=== PATIENT | female | born 1935 | race Caucasian/White ===

== ENCOUNTER 2023-10-02 15:14 | Emergency (ER) | payer OTHER ==
[~2023-10-02] VITALS: Ht 157.5 cm; Wt 68.0 kg
[2023-10-02 15:23] VITALS: BP_SYST 113; PULSE 74; RESP 15; TEMP 98.2; O2SAT 96
[2023-10-02] MEDS ORDERED: KETOROLAC TROMETHAMINE 30 MG VIAL ONE (17:10)
[2023-10-02] MEDS: KETOROLAC TROMETHAMINE 30 MG VIAL IM ONE (17:10)
[2023-10-02] MEDS ORDERED: DICL20GE TP (17:14)
[2023-10-02] MEDS ORDERED: LIDO1ADH22 TP (17:14)
[2023-10-02 17:30] VITALS: BP_SYST 113; PULSE 74; RESP 15; TEMP 98.2; O2SAT 96
== END 2023-10-02 17:27 | disposition home or self-care (01) ==
LOC: SED 15:14
DX: M54.41 Lumbago with sciatica, right side (principal); M79.604 Pain in right leg; I10 Essential (primary) hypertension
CPT/HCPCS: 99285; 93971; 96372; J1885

== ENCOUNTER 2023-11-08 15:04 | Emergency (ER) | payer OTHER ==
[~2023-11-08] VITALS: Ht 157.5 cm; Wt 72.6 kg
[~2023-11-08 15:04] MED LIST: DICL20GE TP; LIDO1ADH22 TP
[2023-11-08 15:17] VITALS: BP_SYST 110; PULSE 74; RESP 18; TEMP 98.3; O2SAT 98
[2023-11-08 16:41] LABS: ALANINE AMINOTRANSFERASE 25 U/L (12-78); ANION GAP 5 (5-15); ASPARTATE AMINOTRANSFERASE 19 U/L (10-37); CALCIUM 9.5 mg/dL (8.4-11.0); CARBON DIOXIDE 31 mmol/L (23-29); CHLORIDE 98 mmol/L (98-107); CREATININE 0.89 mg/dL (0.55-1.30); GLUCOSE 92 mg/dL (74-106); POTASSIUM 5.1 mmol/L (3.5-5.1); SODIUM SERUM 134 mmol/L (136-145); TOTAL BILIRUBIN 0.5 mg/dL (0.0-1.0); TOTAL PROTEIN, SERUM 7.1 g/dL (6.4-8.3); UREA NITROGEN, BLOOD 29 mg/dL (8-21)
[2023-11-08 16:52] LABS: BILIRUBIN,DIRECT 0.1 mg/dL (0.0-0.3); CREATINE KINASE, TOTAL 112 U/L (26-192)
[2023-11-08 16:55] LABS: BASOPHILS % (AUTO) 0.6 % (0.0-2.0); EOSINOPHILS # (AUTO) 0.2 K/uL (0.0-0.4); EOSINOPHILS % (AUTO) 3.3 % (0.0-4.0); HEMATOCRIT 36.9 % (36-48); HEMOGLOBIN 12.7 g/dL (12.0-16.0); LYMPHOCYTES # (AUTO) 2.3 K/uL (1.0-5.5); LYMPHOCYTES % (AUTO) 39.3 % (20.5-51.5); MEAN CORPUSCULAR HEMOGLOBIN 32 pg (27-31); MEAN CORPUSCULAR HGB CONC 34 % (32-36); MEAN CORPUSCULAR VOLUME 93 fL (79.0-98.0); MONOCYTES # (AUTO) 0.5 K/uL (0.0-1.0); MONOCYTES % (AUTO) 8.2 % (1.7-9.3); NEUTROPHILS # (AUTO) 2.9 K/uL (1.8-7.7); NEUTROPHILS % (AUTO) 48.6 % (40.0-70.0); PLATELET COUNT (AUTO) 168 K/uL (130-430); RED BLOOD CELL COUNT(AUTO) 3.97 MIL/uL (4.2-6.2); RED CELL DISTRIBUTION WIDTH 14.2 % (9.0-15.0); WHITE BLOOD COUNT (AUTO) 5.9 K/uL (4.8-10.8)
[2023-11-08 17:20] VITALS: BP_SYST 110; PULSE 74; RESP 18; TEMP 98.3; O2SAT 98
[2023-11-08 17:57] LABS: PROTHROMBIN TIME 10.5 SECS (9.5-12.5)
== END 2023-11-08 15:20 | disposition home or self-care (01) ==
LOC: SED 15:04
DX: R60.0 Localized edema (principal); R07.89 Other chest pain; I10 Essential (primary) hypertension; Z79.899 Other long term (current) drug therapy
CPT/HCPCS: 36415; 71045; 80048; 80076; 82550; 83880; 84484; 85025; 85610; 85730; 93005; 93971; 99285